=== PATIENT | male | born 1995 | race African-American/Black ===

== ENCOUNTER 2021-06-21 20:38 | Emergency (ER) | payer MEDICAID ==
[~2021-06-21] VITALS: Ht 177.8 cm; Wt 91.0 kg
[2021-06-21] MEDS ORDERED: IBUPROFEN 800MG TABLET PO ONE (22:45)
[2021-06-21 23:44] VITALS: BP 121/88
[2021-06-21] MEDS ORDERED: IBUP-2030 MT (23:47)
== END 2021-06-22 00:01 | disposition home or self-care (01) ==
LOC: ER 20:38
DX: S63.592A Other specified sprain of left wrist, initial encounter (principal); S09.8XXA Other specified injuries of head, initial encounter; M79.18 Myalgia, other site; V43.52XA Car driver injured in collision with other type car in traffic accident, initial encounter; Y93.89 Activity, other specified; Y92.414 Local residential or business street as the place of occurrence of the external cause
CPT/HCPCS: 73110; 99283